=== PATIENT | male | born 1990 | race Caucasian/White ===

== ENCOUNTER 2018-11-18 20:58 | Emergency (ER) | payer SELFPAY ==
[~2018-11-18] VITALS: Ht 185.4 cm; Wt 79.5 kg
[2018-11-18] MEDS ORDERED: NS 1,000 ML IV ONE (22:15)
[2018-11-18] MEDS: MORPHINE 4 MG/ML 1ML VIAL/SYRINGE (J2270) IV PRN ×2 (22:27→22:58)
[2018-11-18 22:39] LABS: BASO # 0.1 10^3/uL (0.0-0.2); BASO % 0.4 % (0.0-1.0); EOS # 0.2 10^3/uL (0.0-0.50); EOS % 1.1 % (0.0-3.0); HEMATOCRIT 38.8 % (42.0-52.0); HEMOGLOBIN 12.6 g/dl (13.5-17.5); LYMPH # 1.6 10^3/uL (1.5-6.5); LYMPH % 7.7 % (24.0-44.0); MEAN CORPUSCULAR HEMOGLOBIN 26.1 pg (27.0-33.0); MEAN CORPUSCULAR HGB CONC 32.5 g/dl (32.0-36.5); MEAN CORPUSCULAR VOLUME 80.5 fl (80.0-96.0); NEUTROPHILS # 16.8 10^3/uL (1.8-7.7); NEUTROPHILS % 80.4 % (36.0-66.0); PLATELET COUNT, AUTOMATED 439 10^3/uL (150-450); RED BLOOD COUNT 4.82 10^6/uL (4.30-6.10); WHITE BLOOD COUNT 20.9 10^3/uL (4.0-10.0)
[2018-11-18 22:45] LABS: MONO # 2.1 10^3/uL (0.0-0.8)
--- NOTE | 2018-11-18 23:13 | REPVR ---
EXAM: US Right Non-Vascular Joint or Other Extremity Structure, Limited Upper Extremity EXAM DATE/TIME: 11/18/2018 10:53 PM CLINICAL HISTORY: 28 years old, male; Pain; Upper arm; Right; Additional info: Rue abscess, pls look at upper arm area of swelling TECHNIQUE: Right US Non-Vascular Joint or Other Extremity Structure. Limited exam of the upper extremity. COMPARISON: No relevant prior studies available. FINDINGS: There is a large complex structure within the subcutaneous layer measuring 8 CM in length by 5 CM in AP dimension by 5 CM in transverse dimension consistent with a massive abscess( infected fluid/pus) within the subcutaneous layer. According to history this is a read and infected in appearance and lateral to the biceps. However an acute tear of the biceps with a massive hematoma could give this appearance as well. A combination of hematoma and infected fluid a consideration. An MRI scan would give additional information regarding this. Neoplasm hemorrhage or infection also in the differential. IMPRESSION: Probable 8 cm x 5 cm x 5 cm abscess. Hematoma or muscle tear another consideration. Underlying neoplasm or vascular malformation other considerations. MRI and MRA with gadolinium additional information regarding this area.Findings were discussed with RORY RODRÍGUEZ at 11/18/2018 11:10 PM EST. Electronically signed by: Price Cruz On 11/18/2018 23:13:12 PM
[2018-11-18 23:23] LABS: BLOOD UREA NITROGEN 15 MG/DL (7-18); CALCIUM LEVEL 8.6 MG/DL (8.5-10.1); CARBON DIOXIDE LEVEL 28 MEQ/L (21-32); CHLORIDE LEVEL 103 MEQ/L (98-107); CREATININE FOR GFR 0.69 MG/DL (0.70-1.30); GLOMERULAR FILTRATION RATE > 60.0 (>60); GLUCOSE, FASTING 94 MG/DL (70-100); POTASSIUM SERUM 3.9 MEQ/L (3.5-5.1); SODIUM LEVEL 139 MEQ/L (136-145)
[2018-11-18 23:27] LABS: ERYTHROCYTE SEDIMENTATION RATE 52 mm/hr (0-15)
[2018-11-19] MEDS ORDERED: LIDOCAINE 1% MDV 20ML VIAL IM ONE
[2018-11-19] MEDS ORDERED: fentaNYL 100 MCG/2 ML INJECTION (J3010) IV ONE (00:15)
[2018-11-19] MEDS ORDERED: AUGM875T28 PO (00:43)
[2018-11-19] MEDS ORDERED: AUGMENTIN 875 MG TAB PO ONE (00:45)
[2018-11-19] MEDS ORDERED: OXYCODONE/APAP 5MG/325MG(BULK FOR ED) 1 TABLET PO ONE (01:00)
[2018-11-19 01:11] VITALS: BP 126/75
== END 2018-11-19 01:15 | disposition home or self-care (01) ==
LOC: M ED 20:58
DX: L02.415 Cutaneous abscess of right lower limb (principal); D72.829 Elevated white blood cell count, unspecified; F17.200 Nicotine dependence, unspecified, uncomplicated
CPT/HCPCS: 10060; 76882; 80048; 85025; 85652; 86140; 87040; 87070; 87077; 87186; 96374; 96375; 96376; 99285; J2270; J3010

== ENCOUNTER → 2023-03-21 | Outpatient (REF) ==
[~2023-03-21] MED LIST: AUGM875T28 PO
== END ==
LOC: M LAB REF 18:10